=== PATIENT | male | born 1940 | race African-American/Black ===

== ENCOUNTER 2018-02-01 11:34 | Inpatient (IN) | payer MEDICARE, OTHER ==
[~2018-02-01] VITALS: Ht 180.3 cm; Wt 68.7 kg
[2018-02-01] VITALS (8 sets, daily range): BP systolic 95–149; BP diastolic 60–95
[~2018-02-01 11:34] MED LIST: ASPI-1159 PO; ELIQUIS PO; LOVA40TA73 PO; OMEP40CA34 PO; PRIMIDONE PO
[2018-02-01] MEDS ORDERED: MORPHINE SULFATE 4 MG/ML CPJ (NOT FOR IM USE) IV STA (12:22)
[2018-02-01] MEDS ORDERED: ONDANSETRON HCL 4MG/2ML INJ IV STA (12:22)
[2018-02-01 12:32] LABS: EOSINOPHILS % 1.3 % (0.0-5.0); HEMATOCRIT. 40.5 % (42.0-52.0); HEMOGLOBIN. 13.2 g/dL (14.0-18.0); LYMPHOCYTES % 9.8 % (20.0-50.0); MEAN CORPUSCULAR HEMOGLOBIN 29.2 pg (28.0-32.0); MEAN CORPUSCULAR VOLUME 89.4 fL (80.0-94.0); MEAN PLATELET VOLUME 9.4 fl (7.4-10.4); NEUTROPHILS % 78.9 % (40.0-76.0); PLATELET 222 x1000/uL (130-400); RED BLOOD CELL COUNT 4.53 mill/uL (4.7-6.1); RED CELL DISTRIBUTION WIDTH 14.9 % (11.6-14.6)
[2018-02-01 12:35] LABS: CHLORIDE 104 mEq/L (98-107)
[2018-02-01] MEDS ORDERED: DILTIAZEM HCL 5MG/ML 5ML VIAL IV NR ×2 (12:45→14:00)
[2018-02-01] MEDS ORDERED: ASPIRIN 325MG TABLET PO ONE (13:00)
[2018-02-01] MEDS ORDERED: IOHEXOL-300 100 ML BOTTLE ONE (13:38)
[2018-02-01] MEDS ORDERED: MEDICATION NOT ON FORMULARY EA XX SCH (14:00)
[2018-02-01] MEDS ORDERED: FUROSEMIDE 40MG/4ML VIAL IVP NR (15:15)
[2018-02-01 16:44] LABS: INR 1.3; PROTHROMBIN TIME 13.5 sec (9.1-11.1)
[2018-02-01] MEDS: ENOXAPARIN 80MG/0.8ML SYR SUBCUT SCH (17:24)
[2018-02-01] MEDS: VERAPAMIL HCL 2.5 MG/1 ML 2ML VIAL IV PRN (17:26)
[2018-02-01] MEDS: LOSARTAN POTASSIUM 25 MG TABLET PO SCH ×2 (17:37→18:17)
[2018-02-01] MEDS: DILTIAZEM HCL 60MG TABLET PO SCH ×2 (17:38→18:18)
[2018-02-01 21:00] LABS: CLARITY URINE CLOUDY (CLEAR); COLOR URINE YELLOW (YELLOW); KETONES URINE NEGATIVE (NEGATIVE); LEUKOCYTE ESTERASE URINE NEGATIVE (NEGATIVE); NITRITE URINE NEGATIVE (NEGATIVE); OCCULT BLOOD URINE NEGATIVE (NEGATIVE); PH URINE 5.5 (4.5-8.0); PROTEIN URINE TRACE (NEGATIVE); SPECIFIC GRAVITY URINE 1.019 (1.005-1.030); UROBILINOGEN URINE 0.2 E.U./dL (0.2-1.0)
[2018-02-01] MEDS ORDERED: IPRATROPIUM/ALBUTEROL 0.5-3(2.5)MG/3ML NEB INH PRN (21:00)
[2018-02-01] MEDS ORDERED: LORAZEPAM 0.5MG TABLET PO PRN (21:00)
[2018-02-01] MEDS ORDERED: ACETAMINOPHEN 325MG TABLET PO PRN (21:00)
[2018-02-01] MEDS ORDERED: MAGNESIUM HYDROXIDE 400MG/5ML 30ML UDC PO PRN (21:00)
[2018-02-01] MEDS ORDERED: ONDANSETRON HCL 4MG/2ML INJ IV PRN (21:00)
[2018-02-01] MEDS ORDERED: MAGNESIUM/ALUMINUM HYDROXIDE/SIMETHICONE 30ML UDC PO PRN (21:00)
[2018-02-01] MEDS ORDERED: DIPHENHYDRAMINE 50MG/ML VIAL IV PRN (21:00)
[2018-02-01] MEDS ORDERED: CLONIDINE 0.1MG TABLET PO PRN (21:00)
[2018-02-01] MEDS ORDERED: TEMAZEPAM 15MG CAPSULE PO PRN (21:00)
[2018-02-01] MEDS ORDERED: HYDROCODONE/ACETAMINOPHEN 5/325MG TABLET PO PRN (21:00)
[2018-02-01] MEDS: SODIUM CHLORIDE 0.9% INJ 3ML FLUSH IVF SCH (22:00)
[2018-02-02] VITALS (12 sets, daily range): BP systolic 99–150; BP diastolic 54–92
[2018-02-02] MEDS: DILTIAZEM HCL 60MG TABLET PO SCH ×5 (00:39→23:03)
[2018-02-02] MEDS: ENOXAPARIN 80MG/0.8ML SYR SUBCUT SCH ×2 (05:00→17:10)
[2018-02-02 06:33] LABS: HEMATOCRIT. 41.4 % (42.0-52.0); HEMOGLOBIN. 13.4 g/dL (14.0-18.0); LYMPHOCYTES % 9.9 % (20.0-50.0); MEAN CORPUSCULAR HEMOGLOBIN 29.4 pg (28.0-32.0); MEAN CORPUSCULAR VOLUME 91.1 fL (80.0-94.0); MONOCYTES % 9.2 % (2.0-8.0); NEUTROPHILS % 77.9 % (40.0-76.0); PLATELET 192 x1000/uL (130-400); RED BLOOD CELL COUNT 4.55 mill/uL (4.7-6.1); RED CELL DISTRIBUTION WIDTH 15.2 % (11.6-14.6)
[2018-02-02 06:39] LABS: INR 1.3; PROTHROMBIN TIME 12.6 sec (9.1-11.1)
[2018-02-02] MEDS: OMEPRAZOLE 20MG CAPSULE EXTENDED RELEASE PO SCH (06:46)
[2018-02-02] MEDS: SODIUM CHLORIDE 0.9% INJ 3ML FLUSH IVF SCH ×3 (06:47→21:19)
[2018-02-02 07:06] LABS: CHLORIDE 105 mEq/L (98-107)
[2018-02-02] MEDS: LOSARTAN POTASSIUM 25 MG TABLET PO SCH (08:46)
[2018-02-02] MEDS: VERAPAMIL HCL 2.5 MG/1 ML 2ML VIAL IV PRN (09:42)
[2018-02-02] MEDS ORDERED: MAGNESIUM/ALUMINUM HYDROXIDE/SIMETHICONE 30ML UDC PO PRN (15:00)
[2018-02-02] MEDS: HYDROCODONE/ACETAMINOPHEN 10/325MG TABLET PO PRN (16:08)
[2018-02-02] MEDS ORDERED: DIGOXIN 500MCG/2ML AMP IV SCH (18:00)
[2018-02-03] VITALS (12 sets, daily range): BP systolic 118–151; BP diastolic 74–96
[2018-02-03] MEDS: HYDROCODONE/ACETAMINOPHEN 10/325MG TABLET PO PRN ×2 (04:59→13:18)
[2018-02-03] MEDS: ENOXAPARIN 80MG/0.8ML SYR SUBCUT SCH ×2 (04:59→17:56)
[2018-02-03] MEDS: SODIUM CHLORIDE 0.9% INJ 3ML FLUSH IVF SCH ×3 (05:10→22:35)
[2018-02-03] MEDS: DILTIAZEM HCL 60MG TABLET PO SCH ×2 (05:58→12:05)
[2018-02-03] MEDS: OMEPRAZOLE 20MG CAPSULE EXTENDED RELEASE PO SCH (05:58)
[2018-02-03 06:43] LABS: BASOPHILS % 0.4 % (0.0-2.0); EOSINOPHILS % 1.1 % (0.0-5.0); HEMATOCRIT. 36.4 % (42.0-52.0); HEMOGLOBIN. 12.3 g/dL (14.0-18.0); LYMPHOCYTES % 8.6 % (20.0-50.0); MEAN CORPUSCULAR HEMOGLOBIN 30.2 pg (28.0-32.0); MEAN CORPUSCULAR VOLUME 89.4 fL (80.0-94.0); MONOCYTES % 9.8 % (2.0-8.0); NEUTROPHILS % 80.1 % (40.0-76.0); PLATELET 168 x1000/uL (130-400); RED BLOOD CELL COUNT 4.07 mill/uL (4.7-6.1); RED CELL DISTRIBUTION WIDTH 14.7 % (11.6-14.6)
[2018-02-03 07:28] LABS: CHLORIDE 105 mEq/L (98-107)
[2018-02-03] MEDS: LOSARTAN POTASSIUM 25 MG TABLET PO SCH (08:20)
[2018-02-03 12:40] LABS: BG BASE EXCESS 1.4 mmol/L (-2.0-2.0); BG CARBOXYHEMOGLOBIN 0.6 % (0.5-1.5); BG DEOXYHEMOGLOBIN 9.5 % (0.0-5.0); BG HCO3 ACT 24.8 mmol/L (22.0-26.0); BG METHEMOGLOBIN 0.1 % (0.0-1.5); BG OXYGEN SATURATION 90.4 % (92.0-98.5); BG OXYHEMOGLOBIN 89.8 % (94.0-97.0); BG PCO2 35.5 mmHg (35.0-45.0); BG PH 7.462 (7.350-7.450); BG PO2 58.4 mmHg (75.0-100.0); BG SAMPLE SITE RIGHT RADIAL; BG TOTAL HEMOGLOBIN 13.5 g/dL (12.0-18.0); BG VENT MODE ROOM AIR
[2018-02-03] MEDS: DILTIAZEM HCL 90MG TABLET PO SCH ×2 (17:56→23:35)
[2018-02-03] MEDS: DIGOXIN 250MCG TABLET PO SCH (17:57)
[2018-02-04] VITALS (12 sets, daily range): BP systolic 131–167; BP diastolic 56–100
[2018-02-04] MEDS: HYDROCODONE/ACETAMINOPHEN 10/325MG TABLET PO PRN (03:57)
[2018-02-04] MEDS: DILTIAZEM HCL 90MG TABLET PO SCH ×4 (05:43→23:26)
[2018-02-04] MEDS: SODIUM CHLORIDE 0.9% INJ 3ML FLUSH IVF SCH ×3 (05:44→21:26)
[2018-02-04] MEDS: ENOXAPARIN 80MG/0.8ML SYR SUBCUT SCH ×2 (05:44→17:50)
[2018-02-04] MEDS: LOSARTAN POTASSIUM 25 MG TABLET PO SCH (08:45)
[2018-02-04] MEDS: FAMOTIDINE 20MG TABLET PO SCH ×2 (08:45→21:26)
[2018-02-04] MEDS: CLONIDINE 0.2MG TABLET PO SCH ×2 (14:31→21:26)
[2018-02-04] MEDS: DIGOXIN 250MCG TABLET PO SCH (17:49)
[2018-02-05] VITALS (9 sets, daily range): BP systolic 116–154; BP diastolic 61–100
[2018-02-05] MEDS: HYDROCODONE/ACETAMINOPHEN 10/325MG TABLET PO PRN (04:13)
[2018-02-05] MEDS: ENOXAPARIN 80MG/0.8ML SYR SUBCUT SCH (04:13)
[2018-02-05] MEDS: DILTIAZEM HCL 90MG TABLET PO SCH ×2 (06:41→13:04)
[2018-02-05] MEDS: CLONIDINE 0.2MG TABLET PO SCH ×2 (06:41→15:00)
[2018-02-05] MEDS: SODIUM CHLORIDE 0.9% INJ 3ML FLUSH IVF SCH ×2 (06:42→13:04)
[2018-02-05 06:50] LABS: BASOPHILS % 0.7 % (0.0-2.0); EOSINOPHILS % 1.9 % (0.0-5.0); HEMATOCRIT. 35.8 % (42.0-52.0); HEMOGLOBIN. 12.2 g/dL (14.0-18.0); LYMPHOCYTES % 8.2 % (20.0-50.0); MEAN CORPUSCULAR HEMOGLOBIN 30.2 pg (28.0-32.0); MEAN PLATELET VOLUME 8.8 fl (7.4-10.4); MONOCYTES % 9.8 % (2.0-8.0); NEUTROPHILS % 79.4 % (40.0-76.0); PLATELET 182 x1000/uL (130-400); RED BLOOD CELL COUNT 4.02 mill/uL (4.7-6.1); RED CELL DISTRIBUTION WIDTH 14.2 % (11.6-14.6)
[2018-02-05] MEDS: LOSARTAN POTASSIUM 25 MG TABLET PO SCH (08:16)
[2018-02-05] MEDS: FAMOTIDINE 20MG TABLET PO SCH (08:16)
[2018-02-05 08:25] LABS: CHLORIDE 103 mEq/L (98-107)
== END 2018-02-05 15:23 | disposition home or self-care (01) | DRG 281 ==
LOC: ER 11:46 → 3WST 14:11 → ENRESERV 14:43 → 3WST 16:23
PROVIDERS: ADMIT Internal Medicine; ATTEND Internal Medicine
DX: I21.4 Non-ST elevation (NSTEMI) myocardial infarction (principal); E44.0 Moderate protein-calorie malnutrition; C78.7 Secondary malignant neoplasm of liver and intrahepatic bile duct; C78.00 Secondary malignant neoplasm of unspecified lung; I13.0 Hypertensive heart and chronic kidney disease with heart failure and stage 1 through stage 4 chronic kidney disease, or unspecified chronic kidney disease; I42.9 Cardiomyopathy, unspecified; I82.403 Acute embolism and thrombosis of unspecified deep veins of lower extremity, bilateral; C25.0 Malignant neoplasm of head of pancreas; I50.22 Chronic systolic (congestive) heart failure; I48.2 Chronic atrial fibrillation; R73.9 Hyperglycemia, unspecified; C61 Malignant neoplasm of prostate; I73.9 Peripheral vascular disease, unspecified; E78.00 Pure hypercholesterolemia, unspecified; J44.9 Chronic obstructive pulmonary disease, unspecified; K21.9 Gastro-esophageal reflux disease without esophagitis; Z80.8 Family history of malignant neoplasm of other organs or systems; Z82.49 Family history of ischemic heart disease and other diseases of the circulatory system; Z85.07 Personal history of malignant neoplasm of pancreas; Z88.0 Allergy status to penicillin; Z86.73 Personal history of transient ischemic attack (TIA), and cerebral infarction without residual deficits; Z87.891 Personal history of nicotine dependence; Z85.46 Personal history of malignant neoplasm of prostate; Z79.01 Long term (current) use of anticoagulants; Z90.79 Acquired absence of other genital organ(s); Z68.21 Body mass index [BMI] 21.0-21.9, adult; Z79.82 Long term (current) use of aspirin; Z79.899 Other long term (current) drug therapy; N18.2 Chronic kidney disease, stage 2 (mild)
CPT/HCPCS: 36415; 36600; 71045; 74177; 80048; 80053; 81003; 82375; 82805; 83690; 83735; 83880; 84484; 85025; 85610; 93005; 93306; 93970; 96374; 96375; 96376; 97116; 97162; 97166; 97530; 99291; J1160; J1650; J1940; J2270; J2405; J3490; Q9967